=== PATIENT | female | born 2000 | race Caucasian/White ===

== ENCOUNTER 2022-07-12 08:40 | Day surgery (SDC) | payer OTHER ==
[2022-07-12] VITALS (7 sets, daily range): BP systolic 101–169; BP diastolic 61–87; PULSE 70–105; TEMP 97.1–97.9
[~2022-07-12] VITALS: Ht 162.6 cm; Wt 68.6 kg
[2022-07-12] MEDS ORDERED: LEXAPRO20 MG PO (09:08)
[2022-07-12] MEDS ORDERED: XULANE1 TDM TD (09:38)
--- NOTE | 2022-07-12 10:15 | NUR ---
0915 RETURNS TO ROOM 6 PER CART. ALERT, AMBULATES TO RECLINER. DENIES NAUSEA OR ABD PAIN. VITAL SIGNS OBTAINED. FRIEND HERE. CALL LIGHT AT SIDE. 0930 TOLERATES PO JUICE AND MUFFIN WITHOUT NAUSEA. 0940 DISCHARGE INSTRUCTIONS REVIEWED. [address]. YO HERE TO VISIT WITH PATIENT
--- NOTE | 2022-07-16 07:41 | NUR ---
1000 RETURNS TO ROOM 8 PER CART. ALERT, AMBULATES TO RECLINER WITH STANDBY ASSIST. SEATED WITH LEGS ELEVATED. VITAL SIGNS OBTAINED. DENIES NAUSEA OR ABD PAIN. FRIEND IN ROOM. 1011 DR. WINSTON HERE TO VISIT WITH PATIENT. 1025 CONTINUES TO DENY NAUSEA OR ABD PAIN. TOLERATES PO JUICE AND MUFFIN WITHOUT NAUSEA. DISCHARE INSTRUCTIONS REVIEWED WITH PATIENT VERBALIZING UNDERSTANDING. COPY OF INSTRUCTIONS PROVIDED IN DISCHARGE FOLDER. 1030 IV DC'D WITH CATHETER INTACT. SITE FREE OF REDNESS OR EDEMA. 1032 DRESSES SELF. 1040 DISCHARGED PER WHEELCHAIR TO VEHICLE DRIVEN BY FRIEND.
== END 2022-07-12 10:40 | disposition home or self-care (01) ==
LOC: SDCO 08:40
DX: K62.89 Other specified diseases of anus and rectum (principal); K59.00 Constipation, unspecified; R19.7 Diarrhea, unspecified
CPT/HCPCS: J2704; J7120